=== PATIENT | male | born 1995 | race Two or more races ===

== ENCOUNTER 2021-04-24 06:15 | Emergency (ER) | payer OTHER ==
[~2021-04-24] VITALS: Ht 172.7 cm; Wt 79.8 kg
[2021-04-24 06:19] VITALS: BP 113/69
[2021-04-24 07:40] VITALS: BP 132/76
== END 2021-04-24 08:12 | disposition home or self-care (01) ==
LOC: EDH 06:15
DX: U07.1 COVID-19 (principal); J22 Unspecified acute lower respiratory infection
CPT/HCPCS: 87635; 87804 ×2; 99283; C9803